=== PATIENT | female | born 1965 | race Native Hawaiian/Other Pacific Islander ===

== ENCOUNTER 2016-07-30 19:53 | Emergency (ER) | payer MEDICAID ==
[2016-07-30 21:24] VITALS: BP 149/79
[2016-07-30 21:56] LABS: Hematocrit 40.4 % (30.3-42.9); Hemoglobin 13.7 gm/dl (10.1-14.3); Mean Corpuscular HGB Conc 34 % (30-34); Mean Corpuscular Hemoglobin 30 pg (28-32); Mean Corpuscular Volume 89 fl (79-97); Platelet Count 157 K/mm3 (140-440); Red Blood Count 4.52 M/mm3 (3.65-5.03); Red Cell Distribution Width 14.3 % (13.2-15.2); White Blood Count 7.8 K/mm3 (4.5-11.0)
[2016-07-30 22:09] LABS: Bilirubin,Urine NEG (Negative); Blood,Urine NEG (Negative); Ketones,Urine NEG (Negative); Leukocyte Esterase,Urine TR (Negative); Mucus,Urine 1+ /HPF; Nitrite,Urine NEG (Negative); Protein,Urine <15 mg/dL mg/dL (Negative); Urobilinogen,Urine < 2.0 mg/dL (<2.0)
[2016-07-30 22:21] LABS: Alanine Aminotransferase 40 units/L (7-56); Albumin 4.6 g/dL (3.9-5); Albumin/Globulin Ratio 1.4 %; Alkaline Phosphatase 104 units/L (35-129); Anion Gap 15 mmol/L; Bilirubin,Total 0.6 mg/dL (0.1-1.2); Blood Urea Nitrogen 11 mg/dL (7-17); Calcium 9.1 mg/dL (8.4-10.2); Carbon Dioxide 26 mmol/L (22-30); Chloride 100.9 mmol/L (98-107); Glucose 111 mg/dL (65-100); Lipase 32 units/L (13-60); Potassium 3.8 mmol/L (3.6-5.0); Sodium 138 mmol/L (137-145)
[2016-07-30 22:27] LABS: Blastocytes % (Manual) 0 %
[2016-07-30 22:28] LABS: Diff Status Complete; Platelet Estimate Consistent w Auto; Poikilocytosis Few
--- NOTE | 2016-07-31 19:23 | ED Elopement Review ---
ED Pt Elopement review - Results review Lab results: Laboratory Tests 07/30/16 07/30/16 07/30/16 21:30 21:37 21:37 WBC 7.8 RBC 4.52 Hgb 13.7 Hct 40.4 MCV 89 MCH 30 MCHC 34 RDW 14.3 Plt Count 157 Eos % (Auto) Oncology Research Rn Add Manual Diff Complete Total Counted 100 Seg Neuts % (Manual) 50.0 Band Neutrophils % 0 Lymphocytes % (Manual) 35.0 Reactive Lymphs % (Man) 0 Monocytes % (Manual) 3.0 Eosinophils % (Manual) 10.0 H Basophils % (Manual) 2.0 H Metamyelocytes % 0 Myelocytes % 0 Promyelocytes % 0 Blast Cells % 0 Nucleated RBC % Not Reportable Seg Neutrophils # Man 3.9 Band Neutrophils # 0.0 Lymphocytes # (Manual) 2.7 Abs React Lymphs (Man) 0.0 Monocytes # (Manual) 0.2 Eosinophils # (Manual) 0.8 H Basophils # (Manual) 0.2 H Metamyelocytes # 0.0 Myelocytes # 0.0 Promyelocytes # 0.0 Blast Cells # 0.0 WBC Morphology Not Reportable Hypersegmented Neuts Not Reportable Hyposegmented Neuts Not Reportable Hypogranular Neuts Not Reportable Smudge Cells Not Reportable Toxic Granulation Not Reportable Toxic Vacuolation Not Reportable Dohle Bodies Not Reportable Pelger-Huet Anomaly Not Reportable Bri Rods Not Reportable Platelet Estimate Consistent w auto Clumped Platelets Not Reportable Plt Clumps, EDTA Not Reportable Large Platelets Not Reportable Giant Platelets Not Reportable Platelet Satelliting Not Reportable Plt Morphology Comment Not Reportable RBC Morphology Not Reportable Dimorphic RBCs Not Reportable Polychromasia Not Reportable Hypochromasia Not Reportable Poikilocytosis Few Anisocytosis Not Reportable Microcytosis Not Reportable Macrocytosis Not Reportable Spherocytes Not Reportable Pappenheimer Bodies Not Reportable Sickle Cells Not Reportable Target Cells Not Reportable Tear Drop Cells Not Reportable Ovalocytes Not Reportable Helmet Cells Not Reportable [place] Bodies Not Reportable [place] Rings Not Reportable [place] Cells Not Reportable Bite Cells Not Reportable Crenated Cell Not Reportable Elliptocytes Not Reportable Acanthocytes (Spur) Not Reportable Rouleaux Not Reportable Hemoglobin C Crystals Not Reportable Schistocytes Not Reportable Malaria parasites Not Reportable Tho Bodies Not Reportable Hem Pathologist Commnt No Sodium 138 Potassium 3.8 Chloride 100.9 Carbon Dioxide 26 Anion Gap 15 BUN 11 Creatinine 0.4 L Estimated GFR > 60 BUN/Creatinine Ratio 27.50 Glucose 111 H Calcium 9.1 Total Bilirubin 0.6 AST 36 ALT 40 Alkaline Phosphatase 104 Total Protein 8.0 Albumin 4.6 Albumin/Globulin Ratio 1.4 Lipase 32 Urine Color Yellow Urine Turbidity Slightly-cloudy Urine pH 7.0 Ur Specific [place] 1.016 Urine Protein <15 mg/dl Urine Glucose (UA) Neg Urine Ketones Neg Urine Blood Neg Urine Nitrite Neg Urine Bilirubin Neg Urine Urobilinogen < 2.0 Ur Leukocyte Esterase Tr Urine WBC (Auto) 1.0 Urine RBC (Auto) 7.0 U Epithel Cells (Auto) 1.0 Urine Mucus 1+ - Call Back decision Pt Call Back Decision: No action required
== END 2016-07-30 23:40 | disposition left against medical advice (07) ==
LOC: ED 19:53
DX: R10.9 Unspecified abdominal pain (principal); R11.10 Vomiting, unspecified; Z53.21 Procedure and treatment not carried out due to patient leaving prior to being seen by health care provider
CPT/HCPCS: 36415; 80053; 81001; 83690; 85007; 85025